=== PATIENT | female | born 1980 | race Caucasian/White ===

== ENCOUNTER 2022-05-26 12:14 | Outpatient (CLI) | payer OTHER, SELFPAY | END 2022-05-31 13:25 | disposition home or self-care (01) | LOC: PHYS 12:18 | PROVIDERS: Family Provider Student in an Organized Health Care Education/Training Program; PCP Student in an Organized Health Care Education/Training Program; Referring Provider Student in an Organized Health Care Education/Training Program; Visit Provider Student in an Organized Health Care Education/Training Program | DX: R20.2 Paresthesia of skin (principal) | CPT/HCPCS: 95886; 95912 ==

== ENCOUNTER → 2024-01-19 11:44 | Outpatient (CLI) | payer OTHER, SELFPAY ==
--- NOTE | 2024-01-19 11:46 | DI.RAD.S_ITS ---
PROCEDURE: XR CHEST 2V INDICATIONS: Cough TECHNIQUE: 2 views of the chest were acquired. COMPARISON: None. FINDINGS: Surgical changes and devices: None. Lungs and pleura: Lungs are clear. No pleural effusions or pneumothorax. Mediastinum: Mediastinal contours are normal. Heart size is normal. Bones and chest wall: No suspicious bony abnormalities. Soft tissues appear unremarkable. IMPRESSION: No acute cardiopulmonary abnormality is seen. Approved by: Jasiel Guillen M.D. on 01/19/2024 at 12:49
== END ==
LOC: RAD 11:46
PROVIDERS: Family Provider Student in an Organized Health Care Education/Training Program; PCP Student in an Organized Health Care Education/Training Program; Referring Provider Nurse Practitioner Family; Visit Provider Nurse Practitioner Family
DX: R05.9 Cough, unspecified (principal)
CPT/HCPCS: 71046

== ENCOUNTER → 2024-04-01 14:38 | Outpatient (CLI) | payer OTHER, SELFPAY ==
--- NOTE | 2024-04-01 14:39 | DI.US.S_ITS ---
PROCEDURE: US THYROID INDICATIONS: NONTOXIC GOITER F/U TECHNIQUE: Real-time scanning was performed of the thyroid gland, with image documentation. COMPARISON: None. FINDINGS: Thyroid: Right lobe measures 6.0 x 2.0 x 2.1 cm. Left lobe measures 5.3 x 2.4 x 2 cm. Isthmus is 0.3 cm thick. Echotexture is diffusely heterogeneous. The margin is slightly lobulated and parenchyma is nodular and hypoechoic. There is symmetric and normal vascular flow bilaterally. No suspicious dominant nodule or calcification.. IMPRESSION: Mildly enlarged thyroid gland with morphology consistent with thyroiditis. No focal dominant nodule. ACR TI-RADS definitions and recommendations: TI-RADS 1 (benign): 0 points. FNA not needed. TI-RADS 2 (not suspicious): 2 points. FNA not needed. TI-RADS 3 (mildly suspicious): 3 points. * FNA if 2.5 cm or larger, follow up if 1.5 cm or larger (at 1, 3, and 5 years). TI-RADS 4 (moderately suspicious): 4-6 points. * FNA if 1.5 cm or larger, follow up if 1 cm or larger (at 1, 2, 3, and 5 years). TI-RADS 5 (highly suspicious): 7 points or more. * FNA if 1 cm or larger, follow up if 0.5 cm or larger (every year for 5 years). Dictated by: Ana Lane M.D. on 04/01/2024 at 17:06 Approved by: Ana Lane M.D. on 04/01/2024 at 17:08
== END ==
PROVIDERS: Family Provider Nurse Practitioner Family; PCP Nurse Practitioner Family; Referring Provider Nurse Practitioner Family; Visit Provider Nurse Practitioner Family
DX: E04.9 Nontoxic goiter, unspecified (principal)
CPT/HCPCS: 76536

== ENCOUNTER 2024-04-02 08:05 | Outpatient (RCR) | payer OTHER, SELFPAY ==
--- NOTE | 2024-04-02 09:24 | OT.OP.DC ---
Visit Care Team Role Provider Type PEG Vanessa Attending Provider Non-Staff Family Provider Primary Care Provider Referring Provider Address: [address] [place] [address], [id number] Email: OT Outpatient OT Outpatient Adult Evaluation Start: 04/02/24 08:58 Freq: Status: Active Protocol: Document 04/02/24 08:59 AMS (Rec: 04/02/24 09:23 AMS [id number]) General Information - Adult Session Time Visit Start Time 08:15 Visit Stop Time 08:55 Setting Treatment Setting Outpatient Care Visit Type Note Type Initial Evaluation Referral Referring Physician Ruth Garcia MD Reason for Referral L elbow popping; R finger pain Identification Identification Confirmed Yes Identification Confirmed By Self Goals Treatment Treatment Ultrasound. 20% duty cycle; 2. 0 w/cm2. Applied to volar/ medial surface of R 5th digit for swelling. Skin intact pre- and post- treatment. (+) tolerance of treatment. (+) reduction of swelling noted w/ palpation (proximal/radial to PIPJ). Assessment/Plan Assessment Treatment Assessment Vianney is 44 y.o. and right hand dominant; she was referred to outpatient OT secondary to L elbow popping and R finger pain. Medical history is significant for back pain; jaw pain; depression; dizziness; falls; headaches; hearing problems; thyroid disorder. 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 She indicated that her symptoms presented a couple of months ago and hurt her R hand and likely her L elbow when walking her dog. She was not given a brace; she has not been icing or taking oral pain med, although, has used topical CBD cream. x-ray was negative. Whole Body Pain Assessment Grid completed w/ indication of 0 out of 10 relative to L elbow pain. Hand /Wrist Pain Assessment Grid completed w/ indication of 4 out of 10 pain relative to dorsal 5th metacarpal, proximal to 5th MPJ; 6 out of 10 pain relative to dorsal PIPJ -> proximal MPJ; 5 out of 10 pain relative to dorsal 5th DIPJ. QuickDASH UE Outcome Measure Score = 32.50, QuickDASH UE Work Module Score = 12.50. Discomfort reported with mouse use and prolonged writing (relative to R hand). R 10 degrees valgus orientation away from body vs L 0 degrees valgus orientation away from body; popping of L elbow intermittent, however, predominantly w/ forearm pronation. Mild edema present of R 5th digit. Slight ulnar rotation of 5th digit at PIPJ. Able to maykel pushing down of L hand flat on table. 42 degrees active flex at R DIPJ vs 42 degrees active flex at L DIPJ. 68 degrees active flex R PIPJ vs 93 degrees active flex L PIPJ. 87 degrees active flex R MPJ vs 87 degrees active flex L MPJ. Dynamometer II ecological technical officer strength testing w/ elbows in 90 degrees flexion = 45.0# of force R ecological technical officer vs 43.0 # of force L ecological technical officer; dynamometer II ecological technical officer strength testing w/ elbows in extension = 42.0# of force R ecological technical officer vs 35.0# of force L ecological technical officer. Based on presentation, rec referral to [facility] for consideration of custom splint of the R 5th digit given rotational component. Plan Patient Recommendations Discharge from Occupational Therapy Other Suggested Referrals Referral to [facility] for consideration of custom splint for R 5th digit
== END 2024-04-04 09:35 | disposition home or self-care (01) ==
LOC: OT 08:05
PROVIDERS: Family Provider Nurse Practitioner Family; PCP Nurse Practitioner Family; Referring Provider Nurse Practitioner Family; Visit Provider Nurse Practitioner Family
DX: M25.522 Pain in left elbow (principal); M79.644 Pain in right finger(s)
CPT/HCPCS: 97035; 97165

== ENCOUNTER → 2024-09-20 15:07 | Outpatient (CLI) | payer OTHER, SELFPAY ==
--- NOTE | 2024-09-20 15:08 | DI.US.S_ITS ---
PROCEDURE: US ABDOMEN LIMITED INDICATIONS: LIKLEY VENTRAL HERINA AND RT SUPRAPUBIC HERNIA TECHNIQUE: Real-time focused scanning was performed of the abdomen at the areas of clinical concern, with image documentation. COMPARISON: None. FINDINGS: Scan is performed along the midline superior to the umbilicus. No kirsten hernia can be seen, although there does appear to be diastasis recti. Within the right inguinal region, no hernia can be seen. Within the left inguinal region, there is a mild fat containing hernia seen which contains fat. This appears fully reducible. IMPRESSION: No kirsten abdominal wall hernia can be seen, although there is diastasis recti. A small fat containing hernia can be seen within the left inguinal region. Surgical consultation is recommended. Dictated by: Mesfin Bolden M.D. on 09/20/2024 at 17:35 Approved by: Mesfin Bolden M.D. on 09/20/2024 at 17:37
== END ==
PROVIDERS: Family Provider Nurse Practitioner Family; PCP Nurse Practitioner Family; Referring Provider Nurse Practitioner Family; Visit Provider Nurse Practitioner Family
DX: M62.08 Separation of muscle (nontraumatic), other site (principal); K46.9 Unspecified abdominal hernia without obstruction or gangrene; K40.90 Unilateral inguinal hernia, without obstruction or gangrene, not specified as recurrent; R19.00 Intra-abdominal and pelvic swelling, mass and lump, unspecified site
CPT/HCPCS: 76705